=== PATIENT | male | born 1950 | race Caucasian/White ===

== ENCOUNTER → 2022-03-23 09:50 | Outpatient (POV) | payer OTHER, SELFPAY ==
[2022-03-23 10:18] VITALS: BP 98/63; PULSE 95; RESP 20; BMI 28.5
--- NOTE | 2022-03-23 15:33 | EXP.PAIN.OV ---
HPI Data of Consult Patient: new to practice Consult date: 03/23/22 Requesting Physician: Aviva Benz APRN Primary Care Provider: margarita negrete Consult Narrative Reason for consult: Low back pain, left thigh pain/tingling History of present illness: Mr. Bhatia is a 71 year old male who presents today as a new patient. He is a referral from Apryl from an [employer]. Patient states he has been having some low back pain that radiates into his left thigh. He states this is a tingling, dull ache sensation that is worse with prolonged sitting. Patient states this has been going on since around December or January of this year. He stated there is no significant trauma or injury to that site however his primary care provider had recommended more exercise so he switched from his riding lawnmower to a push lawnmower and may have irritated something during that time. Today the patient rates his pain a 1-2 out of 10. He states the pain is more in his left thigh today. Patient states that he does feel like his legs are somewhat weak and will occasionally have some dizziness when standing. Patient also reports some constipation and urinary frequency at today's visit. Patient has not talked to his primary care provider regarding these issues. He states he typically takes [id number] Tylenol or ibuprofen and this does provide moderate relief of his symptoms. He has also been using Biofreeze and Salonpas with some relief of symptoms. Patient has not been to see physical therapy or chiropractor. Patient has had imaging of his lumbar spine. Patient is not managed with any scheduled medications. His Foster is [id number]. It has been reviewed and appropriate. CC: Aviva Benz APRN [facility] Medical History (Updated 03/23/22 @ 15:54 by Aviva Benz APRN) Gout History of gastroesophageal reflux (GERD) Hyperlipidemia Hypertension Kidney stone Normal colonoscopy Osteoarthritis Pilonidal cyst Sleep apnea TIA (transient ischemic attack) Surgical History (Updated 03/23/22 @ 10:28 by Sia Waggoner RN) H/O hernia repair History of tonsillectomy Social History Smoking Status: Smoker, status unknown alcohol intake: never current occupational status: other Review of Systems Review of Systems Review of systems:: pertinent systems reviewed and negative unless documented below Review of systems (narrative): Review of Systems: General: No recent weight changes, no fever, no sleep disturbances Respiratory: No cough, no shortness of air, no recurring pulmonary infections Cardiovascular/peripheral vascular: No chest pain, no palpitations, no edema, no shortness of breath Gastrointestinal: No new onset incontinence, normal bowel movements reported Genitourinary: No new onset incontinence Musculoskeletal: Low back pain, left leg pain Psychiatric: [Normal mood/affect] Neurological: [Denies weakness in extremities], [denies balance issues] Meds Home Medications and Allergies Home Medications Medication Instructions Recorded Confirmed Type allopurinol 300 mg tablet 300 mg PO DAILY gout 03/23/22 03/23/22 History aspirin 325 mg tablet 325 mg PO DAILY heart health 03/23/22 03/23/22 History atorvastatin 20 mg tablet 20 mg PO HS Cholesterol 03/23/22 03/23/22 History lisinopril 20 1 tab PO DAILY blood pressure 03/23/22 03/23/22 History mg-hydrochlorothiazide 12.5 mg tablet omeprazole 20 mg capsule,delayed 20 mg PO DAILY GERD 03/23/22 03/23/22 History release New Prescriptions to Start Prescriptions: Allergies Allergy/AdvReac Type Severity Reaction Status Date / Time No Known Allergies Allergy Verified 03/23/22 10:29 Objective Vital signs: Pulse Resp BP 95 H 20 98/63 L 03/23/22 10:18 03/23/22 10:18 03/23/22 10:18 Narrative: Physical Exam: General: Alert and oriented x3, no acute distress, pleasant and cooperative Lungs: Respirations even and unlabored, symmetrical chest expansion
== END ==
PROVIDERS: Visit Provider Nurse Practitioner Family
DX: M79.18 Myalgia, other site (principal); M79.605 Pain in left leg; M53.9 Dorsopathy, unspecified; M47.816 Spondylosis without myelopathy or radiculopathy, lumbar region
CPT/HCPCS: 99202; G0463

== ENCOUNTER 2022-04-12 08:46 | Day surgery (SDC) | payer MEDICARE, SELFPAY ==
[2022-04-12 09:13] VITALS: BP 131/81; BP 142/86; PULSE 69; PULSE 72; RESP 20; O2SAT 94; BMI 28.5
[2022-04-12 09:18] VITALS: BP 148/85; PULSE 81; RESP 18; O2SAT 98
[2022-04-12 09:21] VITALS: BP 148/85; PULSE 81; RESP 18; O2SAT 98
--- NOTE | 2022-04-12 09:31 | EXP.PAIN.PRO ---
Procedure Date: 04/12/22 Time: 09:32 Anesthesiologist:: Naman Torres CRNA Complications:: None Pre-procedure Diagnosis:: Left piriformis syndrome Post-procedure Diagnosis:: Same Indications for Procedure:: Patient's pleasant 71-year-old male that comes our injection clinic today for left piriformis injection. Patient having pain he describes as constant while standing. However, he rates the pain a 3/10. Procedure Details:: Details of the procedure were explained to the patient. The patient taken the procedure room placed in the prone position. The area over the left posterior hip was cleaned using chlorhexidine as a cleansing solution. At this time using fluoroscopy guidance a 3 and half inch 22-gauge spinal needle was advanced into the left piriformis muscle. Needle position was confirmed using contrast dye. A positive linear spread was noted. After negative aspiration 4 cc of 0.25% Marcaine +40 mg of Depo-Medrol was injected. Needle was removed. Band-Aid was applied. Patient tolerated procedure without difficulty. Plan and Disposition:: Patient was discharged without incident
== END 2022-04-12 09:35 | disposition home or self-care (01) ==
PROVIDERS: PCP Nurse Practitioner Family; Visit Provider Nurse Anesthetist, Certified Registered
DX: G57.02 Lesion of sciatic nerve, left lower limb (principal)
CPT/HCPCS: 20552; 77002; J1030; Q9966

== ENCOUNTER → 2022-04-27 09:36 | Outpatient (POV) | payer MEDICARE, SELFPAY ==
[2022-04-27 10:22] VITALS: BP 151/84; PULSE 79; RESP 18; TEMP 36.4; O2SAT 94; BMI 29.5
--- NOTE | 2022-04-27 12:38 | EXP.PAIN.SOA ---
[facility] Pain Management SOAP Note Subjective:: Patient is a pleasant 71-year-old male that presents today for follow-up from left piriformis injection on 04/12/2022. We are currently treating the patient for degenerative disc disease multilevel lumbar spine with lumbar facet arthropathy, low back pain, lumbar spondylosis, myofascial pain, left leg pain, piriformis syndrome. Patient states that he has had significant improvement following this injection and feels like he is still continuing to get help. He states that he did end up getting a COVID booster Monday and felt really terrible Monday however he has had significant improvement after following . Today he rates his pain a 1 out of 10. He states he has some pain in his low back remaining. Patient states that he has had at least 50% improvement following this injection. He states he has been able to increase his activity such as walking around [place] farm, standing, washing dishes, activities of daily living. Patient continues to do physical therapy and at home exercise and stretching techniques that also provide improvement of his symptoms. Patient does use ibuprofen as needed to help treat his symptoms. He also uses Biofreeze and Salonpas with some relief of his symptoms. Patient is not on any scheduled medications. His Foster is [id number]. It has been reviewed and appropriate. Objective:: Physical Exam: General: Alert and oriented x3, no acute distress, pleasant and cooperative Lungs: Respirations even and unlabored, symmetrical chest expansion Eyes: PERRL Musculoskeletal: Flexion and extension of lumbar [spine] somewhat guarded secondary to pain, [antalgic gait noted] Neurological: Speech clear, no gross sensory deficit Assessment:: degenerative disc disease multilevel lumbar spine with lumbar facet arthropathy, low back pain, lumbar spondylosis, myofascial pain, left leg pain, piriformis syndrome Plan:: Patient has had significant improvement of his symptoms following the piriformis injection injection. At this time he does not need additional injective therapy. Patient will follow-up in 1 month. He will return to clinic in 1 month for reevaluation of symptoms and follow-up. Patient has been instructed to contact the clinic with any concerns before the next appointment. Dr. Shaikh has reviewed this note and agrees with this plan of care. This note was dictated using voice recognition software and make contain errors or omissions. [facility] Medical History Gout History of gastroesophageal reflux (GERD) Hyperlipidemia Hypertension Kidney stone Normal colonoscopy Osteoarthritis Pilonidal cyst Sleep apnea TIA (transient ischemic attack) Surgical History H/O hernia repair History of tonsillectomy Family History (Updated 04/12/22 @ 09:17 by Sia Waggoner RN) Other No significant family history Social History (Updated 04/12/22 @ 09:18 by Sia Waggoner RN) Smoking Status: Smoker, status unknown alcohol intake: never current occupational status: retired Travel in the last 8 weeks: None
== END ==
PROVIDERS: PCP Nurse Practitioner Family; Visit Provider Nurse Practitioner Family
DX: M51.36 Other intervertebral disc degeneration, lumbar region (principal); M47.816 Spondylosis without myelopathy or radiculopathy, lumbar region; M79.18 Myalgia, other site; G57.00 Lesion of sciatic nerve, unspecified lower limb
CPT/HCPCS: 99212; G0463

== ENCOUNTER → 2022-05-26 09:38 | Outpatient (POV) | payer MEDICARE, SELFPAY ==
--- NOTE | 2022-05-26 10:01 | A.OFFVIS_ITS ---
[facility] Pain Management SOAP Note Subjective:: Patient is a pleasant 71-year-old male who presents today for follow-up of left piriformis injection on 04/12/2022. We are currently treating the patient for degenerative disc disease of lumbar spine multilevel with lumbar facet arthropathy, low back pain, lumbar spondylosis, myofascial pain, left leg pain, piriformis syndrome. Today the patient states he has had significant improvement following this injection as well as physical therapy. Patient states he is at least 95% better from when he originally started coming to the office. Patient states he has increased his activity with minimal pain symptoms. Patient does state he still has occasional left thigh numbness. Patient denies any new trauma or injury. He denies any change to location or type of pain he experiences. Patient does use Biofreeze and Salonpas as needed to help with his symptoms as well as ibuprofen. Patient is not on any scheduled medications. His Foster is [id number]. It has been reviewed and appropriate. Review of Systems: General: No recent weight changes, no fever, no sleep disturbances Respiratory: No cough, no shortness of air, no recurring pulmonary infections Cardiovascular/peripheral vascular: No chest pain, no palpitations, no edema, no shortness of breath Gastrointestinal: No new onset incontinence, normal bowel movements reported Genitourinary: No new onset incontinence Musculoskeletal: Low back pain, left leg pain Psychiatric: [Normal mood/affect] Neurological: [Denies weakness in extremities], [denies balance issues] Objective:: Physical Exam: General: Alert and oriented x3, no acute distress, pleasant and cooperative Lungs: Respirations even and unlabored, symmetrical chest expansion Eyes: PERRL Musculoskeletal: Flexion and extension of lumbar [spine] somewhat guarded secondary to pain, [antalgic gait noted] Neurological: Speech clear, no gross sensory deficit Assessment:: Degenerative disc disease of lumbar spine multilevel with lumbar radiculopathy symptoms, lumbar spondylosis, myofascial pain, piriformis syndrome, low back pain, left leg pain Plan:: Patient has had significant improvement following his injection and physical therapy. At this time the patient does not require any additional injections. We will follow-up with the patient in 1 month. Patient will return to clinic in 1 month for reevaluation of symptoms and follow-up. Patient has been instructed to contact the clinic with any concerns before the next appointment. Dr. Shaikh has reviewed this note and agrees with this plan of care. This note was dictated using voice recognition software and make contain errors or omissions. PFSH PFSH Medical History Gout History of gastroesophageal reflux (GERD) Hyperlipidemia Hypertension Kidney stone Normal colonoscopy Osteoarthritis Pilonidal cyst Sleep apnea TIA (transient ischemic attack) Surgical History H/O hernia repair History of tonsillectomy Family History (Updated 04/12/22 @ 09:17 by Sia Waggoner RN) Other No significant family history Social History (Updated 04/12/22 @ 09:18 by Sia Waggoner RN) Smoking Status: Smoker, status unknown alcohol intake: never current occupational status: retired Travel in the last 8 weeks: None
[2022-05-26 10:17] VITALS: BP 106/72; PULSE 77; RESP 18; TEMP 36.7; O2SAT 98; BMI 29.0
== END ==
PROVIDERS: PCP Nurse Practitioner Family; Visit Provider Nurse Practitioner Family
DX: M51.16 Intervertebral disc disorders with radiculopathy, lumbar region (principal); M47.26 Other spondylosis with radiculopathy, lumbar region; G57.00 Lesion of sciatic nerve, unspecified lower limb; M79.18 Myalgia, other site; M79.605 Pain in left leg; Z79.899 Other long term (current) drug therapy
CPT/HCPCS: 99212; G0463

== ENCOUNTER → 2022-06-29 09:59 | Outpatient (POV) | payer MEDICARE, SELFPAY ==
[2022-06-29 10:18] VITALS: BP 122/78; PULSE 80; RESP 18; O2SAT 95; BMI 28.5
--- NOTE | 2022-06-29 10:31 | EXP.PAIN.SOA ---
[facility] Pain Management SOAP Note Subjective:: Patient is a pleasant 71-year-old male who presents today for follow-up. We are currently treating the patient for degenerative disc disease of lumbar spine multilevel with lumbar radiculopathy, lumbar facet arthropathy, low back pain, lumbar spondylosis, myofascial pain, left leg pain, piriformis syndrome. Today he rates his pain a 0 out of 10. Patient states that he is continue to have minimal pain following his last left piriformis injection on 04/12/2022. Patient states he does not even have to use the Biofreeze or Salonpas that he previously used or ibuprofen. Patient is not on any scheduled medications. He did go to physical therapy which provided significant improvement and he continues to do at home exercising and stretching. Patient states he will occasionally get some pains in his upper legs at night and describes this as a achy sensation but he states this frequently is relieved with a warm blanket. At this time he states it does not create significant issues. His Foster is [id number]. It has been reviewed and appropriate. Review of Systems: General: No recent weight changes, no fever, no sleep disturbances Respiratory: No cough, no shortness of air, no recurring pulmonary infections Cardiovascular/peripheral vascular: No chest pain, no palpitations, no edema, no shortness of breath Gastrointestinal: No new onset incontinence, normal bowel movements reported Genitourinary: No new onset incontinence Musculoskeletal: Leg pain Psychiatric: [Normal mood/affect] Neurological: [Denies weakness in extremities], [denies balance issues] Objective:: Physical Exam: General: Alert and oriented x3, no acute distress, pleasant and cooperative Lungs: Respirations even and unlabored, symmetrical chest expansion Eyes: PERRL Musculoskeletal: Flexion and extension of lumbar [spine] somewhat guarded secondary to pain, [antalgic gait noted] Neurological: Speech clear, no gross sensory deficit Assessment:: Degenerative disc disease of lumbar spine multilevels with lumbar radiculopathy symptoms, lumbar facet arthropathy, lumbar spondylosis, low back pain, myofascial pain, left leg pain, piriformis syndrome Plan:: Patient continues to have significant improvement following his last injection. At this time he does not require any additional injective therapy. We will follow-up with the patient in 3 months for reevaluation of symptoms and follow-up. Patient has been instructed to contact the clinic with any concerns before the next appointment. Dr. Shaikh has reviewed this note and agrees with this plan of care. This note was dictated using voice recognition software and make contain errors or omissions. [facility] Medical History Gout History of gastroesophageal reflux (GERD) Hyperlipidemia Hypertension Kidney stone Normal colonoscopy Osteoarthritis Pilonidal cyst Sleep apnea TIA (transient ischemic attack) Surgical History H/O hernia repair History of tonsillectomy Family History (Updated 04/12/22 @ 09:17 by Sia Waggoner RN) Other No significant family history Social History (Updated 04/12/22 @ 09:18 by Sia Waggoner RN) Smoking Status: Smoker, status unknown alcohol intake: never current occupational status: retired Travel in the last 8 weeks: None
== END ==
PROVIDERS: PCP Nurse Practitioner Family; Visit Provider Nurse Practitioner Family
DX: M51.16 Intervertebral disc disorders with radiculopathy, lumbar region (principal); M47.26 Other spondylosis with radiculopathy, lumbar region; M79.10 Myalgia, unspecified site; G57.00 Lesion of sciatic nerve, unspecified lower limb; M79.605 Pain in left leg
CPT/HCPCS: 99212; G0463

== ENCOUNTER → 2022-09-22 10:12 | Outpatient (POV) | payer MEDICARE, SELFPAY ==
--- NOTE | 2022-09-22 10:29 | EXP.PAIN.SOA ---
[facility] Pain Management SOAP Note Subjective:: Patient is a pleasant 71-year-old male who presents today for follow-up. We are currently treating the patient for degenerative disc disease of lumbar spine multilevel with lumbar radiculopathy symptoms, lumbar facet arthropathy, low back pain, lumbar spondylosis, myofascial pain, left leg pain, piriformis syndrome. Today he rates his pain a 0 out of 10. Patient denies any new trauma or injury. Patient denies any change location or type of pain he experiences. Patient did have a left piriformis injection on 04/12/2022 that continues to provide significant relief. Patient has not even needed to use his Biofreeze, or Salonpas. Patient states he does still continue to have occasional knee pain at night however he will use ibuprofen and this is resolved. Patient states he has no walking pain now following his prior injection. Patient states he will occasionally notice some stiffness when he has been driving for longer period of time or sitting however he still states he has had significant improvement. Patient is not on any scheduled medications. Patient did go to physical therapy which provided significant improvement and he continues to do at home stretching and exercising. His Foster is [id number]. Its been reviewed and appropriate. Review of Systems: General: No recent weight changes, no fever, no sleep disturbances Respiratory: No cough, no shortness of air, no recurring pulmonary infections Cardiovascular/peripheral vascular: No chest pain, no palpitations, no edema, no shortness of breath Gastrointestinal: No new onset incontinence, normal bowel movements reported Genitourinary: No new onset incontinence Musculoskeletal: Low back pain Psychiatric: [Normal mood/affect] Neurological: [Denies weakness in extremities], [denies balance issues] Objective:: Physical Exam: General: Alert and oriented x3, no acute distress, pleasant and cooperative Lungs: Respirations even and unlabored, symmetrical chest expansion Eyes: PERRL Musculoskeletal: Flexion and extension of lumbar [spine] somewhat guarded secondary to pain, [antalgic gait noted] Neurological: Speech clear, no gross sensory deficit ORT score updated with low risk Assessment:: Degenerative disc disease of lumbar spine with lumbar radiculopathy symptoms multilevel, lumbar facet arthropathy, lumbar spondylosis, low back pain, myofascial pain, left leg pain, piriformis syndrome Plan:: Patient continues to experience significant relief and does not require any additional injective therapy. Patient will return to clinic in 6 months for reevaluation of symptoms and plan of care. Patient has been instructed to contact the clinic with any concerns before the next appointment. Dr. Shaikh has reviewed this note and agrees with this plan of care. This note was dictated using voice recognition software and make contain errors or omissions. [facility] Disclaimer: The information contained in this section may have been updated after the patient was seen, as this information can be updated by other users. Medical History Gout History of gastroesophageal reflux (GERD) Hyperlipidemia Hypertension Kidney stone Normal colonoscopy Osteoarthritis Pilonidal cyst Sleep apnea TIA (transient ischemic attack) Surgical History H/O hernia repair History of tonsillectomy Family History (Updated 04/12/22 @ 09:17 by Sia Waggoner RN) Other No significant family history Social History (Updated 04/12/22 @ 09:18 by Sia Waggoner RN) Smoking Status: Smoker, status unknown alcohol intake: never current occupational status: retired Travel in the last 8 weeks: None
[2022-09-22 10:38] VITALS: BP 140/73; PULSE 84; RESP 18; O2SAT 98; BMI 28.7
== END ==
PROVIDERS: PCP Nurse Practitioner Family; Visit Provider Nurse Practitioner Family
DX: M51.16 Intervertebral disc disorders with radiculopathy, lumbar region (principal); M47.26 Other spondylosis with radiculopathy, lumbar region; M79.605 Pain in left leg; G57.00 Lesion of sciatic nerve, unspecified lower limb; M79.10 Myalgia, unspecified site
CPT/HCPCS: 99212; G0463

== ENCOUNTER → 2023-03-23 10:07 | Outpatient (POV) | payer MEDICARE, SELFPAY ==
--- NOTE | 2023-03-23 10:16 | EXP.PAIN.SOA ---
[facility] Pain Management SOAP Note Subjective:: Patient is a pleasant 71-year-old male who presents today for 6-month follow-up. We are currently treating the patient for degenerative disc disease of lumbar spine multilevel with lumbar radiculopathy symptoms, lumbar facet arthropathy, low back pain, lumbar spondylosis, myofascial pain, left leg pain, piriformis syndrome. Today he rates his pain a 0 out of 10. He states he continues to have relief from his last injection. He had a left piriformis injection on 04/12/2022 that continues to provide significant relief. He denies any new trauma or injury or any change location or type of pain he experiences. He states he really only has some nighttime pain in his hip and leg however it is minimal and he uses ibuprofen as needed to help with this. Patient does state that he has not even been having to use his Salonpas cream. He continues to feel much more functional since having his injection. Patient is not on any scheduled medications. He continues to also do at home exercising and stretching on a daily basis. His Foster is [id number]. Its been reviewed and appropriate. Review of Systems: General: No recent weight changes, no fever, no sleep disturbances Respiratory: No cough, no shortness of air, no recurring pulmonary infections Cardiovascular/peripheral vascular: No chest pain, no palpitations, no edema, no shortness of breath Gastrointestinal: No new onset incontinence, normal bowel movements reported Genitourinary: No new onset incontinence Musculoskeletal: Low back pain Psychiatric: [Normal mood/affect] Neurological: [Denies weakness in extremities], [denies balance issues] Objective:: Physical Exam: General: Alert and oriented x3, no acute distress, pleasant and cooperative Lungs: Respirations even and unlabored, symmetrical chest expansion Eyes: PERRL Musculoskeletal: Flexion and extension of lumbar [spine] somewhat guarded secondary to pain, [antalgic gait noted] Neurological: Speech clear, no gross sensory deficit Assessment:: Degenerative disc disease of lumbar spine with lumbar radiculopathy symptoms, lumbar facet arthropathy, low back pain, lumbar spondylosis, myofascial pain, left leg pain, piriformis syndrome Plan:: Patient continues to have significant relief following his last piriformis injection and does not require any additional injective therapy at this time. Patient will return to clinic in 6 months for reevaluation of symptoms and plan of care. Patient has been instructed to contact the clinic with any concerns before the next appointment. Dr. Shaikh has reviewed this note and agrees with this plan of care. This note was dictated using voice recognition software and make contain errors or omissions. [facility] Disclaimer: The information contained in this section may have been updated after the patient was seen, as this information can be updated by other users. Medical History Gout History of gastroesophageal reflux (GERD) Hyperlipidemia Hypertension Kidney stone Normal colonoscopy Osteoarthritis Pilonidal cyst Sleep apnea TIA (transient ischemic attack) Surgical History H/O hernia repair History of tonsillectomy Family History (Updated 04/12/22 @ 09:17 by Sia Waggoner RN) Other No significant family history Social History (Updated 04/12/22 @ 09:18 by Sia Waggoner RN) Smoking Status: Smoker, status unknown alcohol intake: never current occupational status: retired Travel in the last 8 weeks: None
[2023-03-23 12:33] VITALS: BP 119/83; PULSE 71; RESP 18; O2SAT 97; BMI 28.8
== END ==
PROVIDERS: PCP Nurse Practitioner Family; Visit Provider Nurse Practitioner Family
DX: M51.16 Intervertebral disc disorders with radiculopathy, lumbar region (principal); M47.26 Other spondylosis with radiculopathy, lumbar region; M79.10 Myalgia, unspecified site; G57.02 Lesion of sciatic nerve, left lower limb; M79.605 Pain in left leg
CPT/HCPCS: 99212; G0463

== ENCOUNTER → 2023-06-14 14:07 | Outpatient (POV) | payer MEDICARE, SELFPAY ==
[2023-06-14 15:02] VITALS: BP 158/91; PULSE 92; RESP 20; O2SAT 94; BMI 28.5
--- NOTE | 2023-06-14 15:07 | EXP.PAIN.SOA ---
[facility] Pain Management SOAP Note Subjective:: Patient is a pleasant 72-year-old male who presents today for follow-up. We are currently treating the patient for degenerative disc disease of lumbar spine with lumbar radiculopathy symptoms, lumbar facet arthropathy, lumbar spondylosis, low back pain, myofascial pain, left leg pain, piriformis syndrome. Today he rates his pain a 3 out of 10. Patient states he has been experiencing more hip and left leg pain. Patient states this is a aching, throbbing sensation that is worse in bilateral hips. Patient denies any new injury or trauma. He does state that he sleeps on his side and frequently changes positions multiple times throughout the night due to worsening pain symptoms. He states that he is having worsening pain in his legs that seems to be somewhat related to his positioning. He does state the pain interferes with his ability perform activities of daily living such as cooking and cleaning. Patient continues to use ibuprofen as needed along with Salonpas. His Foster has been reviewed and is appropriate. Review of Systems: General: No recent weight changes, no fever, no sleep disturbances Respiratory: No cough, no shortness of air, no recurring pulmonary infections Cardiovascular/peripheral vascular: No chest pain, no palpitations, no edema, no shortness of breath Gastrointestinal: No new onset incontinence, normal bowel movements reported Genitourinary: No new onset incontinence Musculoskeletal: Bilateral hip pain, left leg pain Psychiatric: [Normal mood/affect] Neurological: [Denies weakness in extremities], [denies balance issues] Objective:: Physical Exam: General: Alert and oriented x3, no acute distress, pleasant and cooperative Lungs: Respirations even and unlabored, symmetrical chest expansion Eyes: PERRL Musculoskeletal: Flexion and extension of bilateral hips somewhat guarded secondary to pain, [antalgic gait noted] Neurological: Speech clear, no gross sensory deficit Assessment:: Degenerative disc disease of lumbar spine with lumbar radiculopathy symptoms, lumbar facet arthropathy, lumbar spondylosis, low back pain, myofascial pain, left leg pain, piriformis syndrome, bilateral hip pain/osteoarthritis Plan:: Patient is experiencing worsening pain in his bilateral hips with limited range of motion. I have discussed with the patient that he may benefit from bilateral hip intra-articular injections. Risk and benefits were discussed with patient and he would like to proceed forward with this plan of care. Patient will be scheduled for bilateral hip intra-articular injections. Patient has been instructed to contact the clinic with any concerns before the next appointment. Dr. Shaikh has reviewed this note and agrees with this plan of care. This note was dictated using voice recognition software and make contain errors or omissions. [facility] Disclaimer: The information contained in this section may have been updated after the patient was seen, as this information can be updated by other users. Medical History Gout History of gastroesophageal reflux (GERD) Hyperlipidemia Hypertension Kidney stone Normal colonoscopy Osteoarthritis Pilonidal cyst Sleep apnea TIA (transient ischemic attack) Surgical History H/O hernia repair History of tonsillectomy Family History Other No significant family history Social History (Updated 06/14/23 @ 15:02 by Sia Waggoner RN) Smoking Status: Never smoker alcohol intake: never current occupational status: other Travel in the last 8 weeks: None
== END ==
PROVIDERS: PCP Nurse Practitioner Family; Visit Provider Nurse Practitioner Family
DX: M51.16 Intervertebral disc disorders with radiculopathy, lumbar region (principal); M47.26 Other spondylosis with radiculopathy, lumbar region; M79.10 Myalgia, unspecified site; M79.605 Pain in left leg; G57.00 Lesion of sciatic nerve, unspecified lower limb; M16.0 Bilateral primary osteoarthritis of hip; M25.551 Pain in right hip; M25.552 Pain in left hip
CPT/HCPCS: 99202; G0463

== ENCOUNTER 2023-06-27 13:38 | Day surgery (SDC) | payer MEDICARE, SELFPAY ==
[2023-06-27 13:54] VITALS: BP 131/85; PULSE 91; RESP 16; TEMP 36.2; O2SAT 92; BMI 28.5
[2023-06-27 14:00] VITALS: BP 146/89; PULSE 93; RESP 18; O2SAT 97
[2023-06-27 14:02] VITALS: BP 146/89; PULSE 93; RESP 18; O2SAT 97
[2023-06-27 14:11] VITALS: BP 125/84; PULSE 83; RESP 18; O2SAT 92
--- NOTE | 2023-06-27 14:20 | EXP.PAIN.PRO ---
Procedure Date: 06/27/23 Time: 14:10 Anesthesiologist:: Naman Torres CRNA Complications:: None Pre-procedure Diagnosis:: DJD bilateral hip. Chronic left leg and foot pain. Post-procedure Diagnosis:: Same. Indications for Procedure:: Patient is a very pleasant 72-year-old male who comes our clinic today for bilateral intra-articular hip injections. Patient is complaining of bilateral hip pain at night when sleeping. This pain wakes him and causes him to turn [id number] during the night. Patient reports some difficulty with ambulation at times due to bilateral hip pain. However he reports most of his pain is at night. Patient also complaining of left leg and foot radicular symptoms. He reports a 2 to 3-year history of this radicular symptom. I discussed in detail with the patient and his . If no relief from the bilateral intra-articular hip injections with we should pursue lumbar MRI to further discern lumbar pathology. Procedure Details:: Details of the procedure were explained to the patient. The patient was taken to procedure room placed in the supine position. The area over the bilateral hip was cleaned using chlorhexidine as a cleansing solution. Using fluoroscopy guidance a 3 and half inch 22-gauge spinal needle was used to access the bilateral hip joint without difficulty. After negative aspiration 3 cc of 1% lidocaine +3 cc of 0.25% Marcaine and 40 mg of Depo-Medrol was injected. Needle was withdrawn. Band-Aid applied. Patient tolerated procedure without difficulty. There are no complications. Plan and Disposition:: Patient was discharged without incident.
== END 2023-06-27 14:10 | disposition home or self-care (01) ==
LOC: SC.PAINP 13:39
PROVIDERS: PCP Nurse Practitioner Family; Visit Provider Nurse Anesthetist, Certified Registered
DX: M16.0 Bilateral primary osteoarthritis of hip (principal); M79.672 Pain in left foot; M79.605 Pain in left leg; G89.29 Other chronic pain
CPT/HCPCS: 20610; 77002; J1040

== ENCOUNTER → 2023-07-12 15:02 | Outpatient (POV) | payer MEDICARE, SELFPAY ==
--- NOTE | 2023-07-12 15:29 | EXP.PAIN.SOA ---
[facility] Pain Management SOAP Note Subjective:: Patient is a pleasant 72-year-old male who presents today for follow-up of bilateral intra-articular hip injections on 06/27/2023. We do currently treat the patient for degenerative disc disease of lumbar spine with lumbar radiculopathy symptoms, lumbar facet arthropathy, lumbar spondylosis, low back pain, myofascial pain, bilateral hip pain, left leg pain, piriformis syndrome. Today he rates his pain a 0 out of 10. patient states he had at least 75% improvement starting the very next day. Patient does state that he was experiencing some right leg spasms and had some pain still however the last 3 days he has had 100% improvement with no pain. Patient states he has been able to increase his activity with decreased pain symptoms and feels more functional. Patient does use ibuprofen along with Salonpas patches as needed. His Foster has been reviewed and is appropriate. Review of Systems: General: No recent weight changes, no fever, no sleep disturbances Respiratory: No cough, no shortness of air, no recurring pulmonary infections Cardiovascular/peripheral vascular: No chest pain, no palpitations, no edema, no shortness of breath Gastrointestinal: No new onset incontinence, normal bowel movements reported Genitourinary: No new onset incontinence Musculoskeletal: Low back pain Psychiatric: [Normal mood/affect] Neurological: [Denies weakness in extremities], [denies balance issues] Objective:: Physical Exam: General: Alert and oriented x3, no acute distress, pleasant and cooperative Lungs: Respirations even and unlabored, symmetrical chest expansion Eyes: PERRL Musculoskeletal: Flexion and extension of lumbar [spine] somewhat guarded secondary to pain, [antalgic gait noted] Neurological: Speech clear, no gross sensory deficit Assessment:: degenerative disc disease of lumbar spine with lumbar radiculopathy symptoms, lumbar facet arthropathy, lumbar spondylosis, low back pain, myofascial pain, bilateral hip pain, left leg pain, piriformis syndrome Plan:: Patient has had significant improvement following his bilateral hip intra-articular injections and does not require any additional injection therapy at this time. Patient will return to clinic in 1 month for reevaluation of symptoms and plan of care. Patient has been instructed to contact the clinic with any concerns before the next appointment. Dr. Shaikh has reviewed this note and agrees with this plan of care. This note was dictated using voice recognition software and make contain errors or omissions. [facility] Disclaimer: The information contained in this section may have been updated after the patient was seen, as this information can be updated by other users. Medical History Gout History of gastroesophageal reflux (GERD) Hyperlipidemia Hypertension Kidney stone Normal colonoscopy Osteoarthritis Pilonidal cyst Sleep apnea TIA (transient ischemic attack) Surgical History H/O hernia repair History of tonsillectomy Family History Other No significant family history Social History Smoking Status: Never smoker alcohol intake: never current occupational status: other Travel in the last 8 weeks: None
[2023-07-12 15:31] VITALS: BP 117/75; PULSE 92; RESP 18; O2SAT 93; BMI 28.8
== END ==
PROVIDERS: PCP Nurse Practitioner Family; Visit Provider Nurse Practitioner Family
DX: M51.16 Intervertebral disc disorders with radiculopathy, lumbar region (principal); M47.26 Other spondylosis with radiculopathy, lumbar region; M79.10 Myalgia, unspecified site; M25.551 Pain in right hip; M25.552 Pain in left hip; M79.605 Pain in left leg; G57.00 Lesion of sciatic nerve, unspecified lower limb
CPT/HCPCS: 99212; G0463

== ENCOUNTER → 2023-08-10 10:35 | Outpatient (POV) | payer MEDICARE, SELFPAY ==
--- NOTE | 2023-08-10 10:53 | A.OFFVIS_ITS ---
[facility] Pain Management SOAP Note Subjective:: Patient is a pleasant 72-year-old male who presents today for 1 month follow-up. We do currently treat the patient for degenerative disc disease of lumbar spine with lumbar radiculopathy symptoms, lumbar facet arthropathy, lumbar spondylosis, low back pain, myofascial pain, bilateral hip pain, left leg pain, piriformis syndrome. Today he rates his pain a 0 out of 10. Patient denies any new trauma or injury. Patient previously had Of bilateral intra-articular hip injections on 06/27/2023 that did provide at least 75% improvement. He states he continues to have significant relief however will occasionally experience some pain at night but it is tolerable. He states he does believe a good portion of it is related to arthritis and the change of the weather. He continues to use ibuprofen along with Salonpas patches as needed. His Foster has been reviewed and is appropriate. Review of Systems: General: No recent weight changes, no fever, no sleep disturbances Respiratory: No cough, no shortness of air, no recurring pulmonary infections Cardiovascular/peripheral vascular: No chest pain, no palpitations, no edema, no shortness of breath Gastrointestinal: No new onset incontinence, normal bowel movements reported Genitourinary: No new onset incontinence Musculoskeletal: Low back pain Psychiatric: [Normal mood/affect] Neurological: [Denies weakness in extremities], [denies balance issues] Objective:: Physical Exam: General: Alert and oriented x3, no acute distress, pleasant and cooperative Lungs: Respirations even and unlabored, symmetrical chest expansion Eyes: PERRL Musculoskeletal: Flexion and extension of lumbar [spine] somewhat guarded secondary to pain, [antalgic gait noted] Neurological: Speech clear, no gross sensory deficit Assessment:: Degenerative disc disease of lumbar spine with lumbar radiculopathy symptoms, lumbar facet arthropathy, lumbar spondylosis, low back pain, myofascial pain, bilateral hip pain, leg pain, piriformis syndrome Plan:: Patient continues to does not require any additional injection therapy at this time. Patient will return to clinic in 3 months for reevaluation of symptoms a nd plan of care. Patient has been instructed to contact the clinic with any concerns before the next appointment. Dr. Shaikh has reviewed this note and agrees with this plan of care. This note was dictated using voice recognition software and make contain errors or omissions. [facility] Disclaimer: The information contained in this section may have been updated after the patient was seen, as this information can be updated by other users. Medical History Gout History of gastroesophageal reflux (GERD) Hyperlipidemia Hypertension Kidney stone Normal colonoscopy Osteoarthritis Pilonidal cyst Sleep apnea TIA (transient ischemic attack) Surgical History H/O hernia repair History of tonsillectomy Family History Other No significant family history Social History Smoking Status: Never smoker alcohol intake: never current occupational status: retired Travel in the last 8 weeks: None
[2023-08-10 11:21] VITALS: BP 153/87; PULSE 94; RESP 18; O2SAT 92; BMI 28.5
== END ==
PROVIDERS: PCP Nurse Practitioner Family; Visit Provider Nurse Practitioner Family
DX: M51.16 Intervertebral disc disorders with radiculopathy, lumbar region (principal); M47.26 Other spondylosis with radiculopathy, lumbar region; M79.10 Myalgia, unspecified site; M25.551 Pain in right hip; M25.552 Pain in left hip; M79.606 Pain in leg, unspecified; G57.00 Lesion of sciatic nerve, unspecified lower limb
CPT/HCPCS: 99212; G0463

== ENCOUNTER 2023-11-09 10:20 | Outpatient (POV) | payer MEDICARE, SELFPAY ==
[2023-11-09 10:22] VITALS: BP 155/90; PULSE 75; RESP 18; O2SAT 95; BMI 28.5
--- NOTE | 2023-11-09 10:51 | EXP.PAIN.SOA ---
[facility] Pain Management SOAP Note Subjective:: Patient is a pleasant 73-year-old male who presents today for follow-up. Today he rates his pain a 0 out of 10. He denies any new trauma or injury. He does state that he has started mowing and that he is experiencing more hip pain at night when he lays down as well as overall stiffness and times when he has to drive to [place] for [place]. Patient has had bilateral hip intra-articular injections back in May that did provide 75% relief and have continued to help. His Foster has been reviewed and is appropriate. Review of Systems: General: No recent weight changes, no fever, no sleep disturbances Respiratory: No cough, no shortness of air, no recurring pulmonary infections Cardiovascular/peripheral vascular: No chest pain, no palpitations, no edema, no shortness of breath Gastrointestinal: No new onset incontinence, normal bowel movements reported Genitourinary: No new onset incontinence Musculoskeletal: Hip pain Psychiatric: [Normal mood/affect] Neurological: [Denies weakness in extremities], [denies balance issues] Objective:: Physical Exam: General: Alert and oriented x3, no acute distress, pleasant and cooperative Lungs: Respirations even and unlabored, symmetrical chest expansion Eyes: PERRL Musculoskeletal: Flexion and extension of bilateral hips somewhat guarded secondary to pain, [antalgic gait noted] Neurological: Speech clear, no gross sensory deficit Assessment:: Degenerative disc disease of lumbar spine with lumbar radiculopathy symptoms, lumbar facet arthropathy, lumbar spondylosis, low back pain, myofascial pain, bilateral hip pain, left leg pain, piriformis syndrome Plan:: I discussed with the patient that I will order him a compounded cream. I have recommended that he apply this at night to his hips to see if that helps with the overall pain. I have also discussed with the patient on times when he does have to go to [place] or [place] I would recommend that he take an ibuprofen about an hour before he leaves to see if this helps with the overall stiffness. Patient acknowledges understanding and agrees with this plan of care. I have also discussed with patient in future that we can always do repeat injections when he starts having more consistent pain. We will follow-up with the patient in 1 month for reevaluation of symptoms and plan of care. Patient has been instructed to contact the clinic with any concerns before the next appointment. Dr. Shaikh has reviewed this note and agrees with this plan of care. This note was dictated using voice recognition software and make contain errors or omissions. [facility] Disclaimer: The information contained in this section may have been updated after the patient was seen, as this information can be updated by other users. Medical History Pilonidal cyst Kidney stone Normal colonoscopy Osteoarthritis Sleep apnea TIA (transient ischemic attack) Gout History of gastroesophageal reflux (GERD) Hyperlipidemia Hypertension Surgical History H/O hernia repair History of tonsillectomy Family History Other No significant family history Social History Smoking Status: Never smoker alcohol intake: never current occupational status: other Travel in the last 8 weeks: None
== END 2023-11-09 23:59 ==
LOC: SC.PAIN 10:21
PROVIDERS: PCP Nurse Practitioner Family; Visit Provider Nurse Practitioner Family
DX: M51.16 Intervertebral disc disorders with radiculopathy, lumbar region (principal); M47.26 Other spondylosis with radiculopathy, lumbar region; M79.10 Myalgia, unspecified site; M25.551 Pain in right hip; M25.552 Pain in left hip; M79.605 Pain in left leg; G57.00 Lesion of sciatic nerve, unspecified lower limb
CPT/HCPCS: 99212; G0463

== ENCOUNTER 2023-12-21 10:31 | Outpatient (POV) | payer MEDICARE, SELFPAY ==
[2023-12-21 10:52] VITALS: BP 123/80; PULSE 76; RESP 18; O2SAT 93; BMI 28.7
--- NOTE | 2023-12-21 11:16 | EXP.PAIN.SOA ---
[facility] Pain Management SOAP Note Subjective:: Patient is a pleasant 73-year-old male who presents today for 1 month follow-up. Today he rates his pain a 0 out of 10. Patient does state that he did get the compounded cream and it is helping additionally. He states that the pain went away and that he even picked up a different type of cream that he only uses from time to time and it seems to be helping as well. Patient states that overall following his hip injections in May he has continued to maintain and have improvement. He does state that he is starting yoga soon and hopes this will help as well. His Foster has been reviewed and is appropriate. \Review of Systems: General: No recent weight changes, no fever, no sleep disturbances Respiratory: No cough, no shortness of air, no recurring pulmonary infections Cardiovascular/peripheral vascular: No chest pain, no palpitations, no edema, no shortness of breath Gastrointestinal: No new onset incontinence, normal bowel movements reported Genitourinary: No new onset incontinence Musculoskeletal: Low back pain Psychiatric: [Normal mood/affect] Neurological: [Denies weakness in extremities], [denies balance issues] Objective:: Physical Exam: General: Alert and oriented x3, no acute distress, pleasant and cooperative Lungs: Respirations even and unlabored, symmetrical chest expansion Eyes: PERRL Musculoskeletal: Flexion and extension of lumbar [spine] somewhat guarded secondary to pain, [antalgic gait noted] Neurological: Speech clear, no gross sensory deficit Assessment:: Degenerative disc disease of lumbar spine with lumbar radiculopathy symptoms, lumbar facet arthropathy, lumbar spondylosis, low back pain, myofascial pain, bilateral hip pain, left leg pain Plan:: Patient continues to do well and does not need any additional injections or other interventions. Patient will return to clinic in 3 months for reevaluation of symptoms and plan of care. Patient has been instructed to contact the clinic with any concerns before the next appointment. Dr. Shaikh has reviewed this note and agrees with this plan of care. This note was dictated using voice recognition software and make contain errors or omissions. [facility] Disclaimer: The information contained in this section may have been updated after the patient was seen, as this information can be updated by other users. Medical History Pilonidal cyst Kidney stone Normal colonoscopy Osteoarthritis Sleep apnea TIA (transient ischemic attack) Gout History of gastroesophageal reflux (GERD) Hyperlipidemia Hypertension Surgical History H/O hernia repair History of tonsillectomy Family History Other No significant family history Social History Smoking Status: Never smoker alcohol intake: never current occupational status: retired Travel in the last 8 weeks: None
== END 2023-12-21 23:59 | disposition home or self-care (01) ==
LOC: SC.PAIN 10:32
PROVIDERS: PCP Nurse Practitioner Family; Visit Provider Nurse Practitioner Family
DX: M51.16 Intervertebral disc disorders with radiculopathy, lumbar region (principal); M47.26 Other spondylosis with radiculopathy, lumbar region; M79.10 Myalgia, unspecified site; M25.551 Pain in right hip; M25.552 Pain in left hip; M79.605 Pain in left leg
CPT/HCPCS: 99212; G0463

== ENCOUNTER 2024-03-21 13:59 | Outpatient (POV) | payer MEDICARE, SELFPAY ==
[2024-03-21 14:40] VITALS: BP 138/82; PULSE 89; RESP 16; O2SAT 96; BMI 29.2
--- NOTE | 2024-03-21 14:57 | A.OFFVIS_ITS ---
[facility] Disclaimer: The information contained in this section may have been updated after the patient was seen, as this information can be updated by other users. Medical History Pilonidal cyst Kidney stone Normal colonoscopy Osteoarthritis Sleep apnea TIA (transient ischemic attack) Gout History of gastroesophageal reflux (GERD) Hyperlipidemia Hypertension Surgical History H/O hernia repair History of tonsillectomy Family History Other No significant family history Social History (Reviewed 11/09/23 @ 10: by Renea Sharp RN) Smoking Status: Never smoker alcohol intake: never current occupational status: retired Travel in the last 8 weeks: None PM Subjective & Objective Subjective Subjective:: Patient is a pleasant 73-year-old male who presents today for 3-month follow-up. Today he rates his pain a 0 out of 10. He does state that he has been doing yoga daily and also doing 10,000 steps daily. He does state that overall he is doing really well and that he will occasionally have a pain but it is still very manageable. Patient is requesting a refills on his compounded cream. His Foster has been reviewed and is appropriate. Review of Systems: General: No recent weight changes, no fever, no sleep disturbances Respiratory: No cough, no shortness of air, no recurring pulmonary infections Cardiovascular/peripheral vascular: No chest pain, no palpitations, no edema, no shortness of breath Gastrointestinal: No new onset incontinence, normal bowel movements reported Genitourinary: No new onset incontinence Musculoskeletal: Low back pain Psychiatric: [Normal mood/affect] Neurological: [Denies weakness in extremities], [denies balance issues] Pain at rest (0-10 scale): 0 Objective Objective:: Physical Exam: General: Alert and oriented x3, no acute distress, pleasant and cooperative Lungs: Respirations even and unlabored, symmetrical chest expansion Eyes: PERRL Musculoskeletal: Flexion and extension of lumbar [spine] somewhat guarded secondary to pain, [antalgic gait noted] Neurological: Speech clear, no gross sensory deficit Has patient had previous pain injection?: No Conservative treatment options previously tried: Home exercise plan Length of treatment: Longer than 6 weeks Meds Home Medications and Allergies Home Medications ?Medication ?Instructions ?Recorded ?Confirmed ?Type allopurinol 300 mg tablet 300 mg PO DAILY gout 03/23/22 03/21/24 History aspirin 325 mg tablet 325 mg PO DAILY heart health 03/23/22 03/21/24 History atorvastatin 20 mg tablet 20 mg PO HS Cholesterol 03/23/22 03/21/24 History lisinopril 20 1 tab PO DAILY blood pressure 03/23/22 03/21/24 History mg-hydrochlorothiazide 12.5 mg tablet omeprazole 20 mg capsule,delayed 20 mg PO DAILY GERD 03/23/22 03/21/24 History release New Prescriptions to Start Prescriptions: Allergies Allergy/AdvReac Type Severity Reaction Status Date / Time No Known Allergies Allergy Verified 03/23/22 10:29 Assessment and Plan *Assessment and plan (1) Multilevel degenerative disc disease: Status: Acute Category: Medical Code(s): M53.9 - Dorsopathy, unspecified (2) Lumbar facet arthropathy: Status: Acute Category: Medical Code(s): M47.816 - Spondylosis without myelopathy or radiculopathy, lumbar region Plan Patient continues to do well with no need for any additional injection therapy at this time. I will refill the patient's compounded cream. Patient will return to clinic in 6 months for reevaluation of symptoms and plan of care. Patient has been instructed to contact the clinic with any concerns before the next appointment. Dr. Shaikh has reviewed this note and agrees with this plan of care. This note was dictated using voice recognition software and make contain errors or omissions. All injections are used with Lidocaine or Bupivacaine and Depo Medrol.
== END 2024-03-21 23:59 | disposition home or self-care (01) ==
PROVIDERS: PCP Nurse Practitioner Family; Visit Provider Nurse Practitioner Family
DX: M53.9 Dorsopathy, unspecified (principal); M47.816 Spondylosis without myelopathy or radiculopathy, lumbar region; Z86.73 Personal history of transient ischemic attack (TIA), and cerebral infarction without residual deficits
CPT/HCPCS: 99212; G0463

== ENCOUNTER 2024-09-19 13:17 | Outpatient (POV) | payer MEDICARE, SELFPAY ==
--- NOTE | 2024-09-19 13:29 | A.OFFVIS_ITS ---
[facility] Disclaimer: The information contained in this section may have been updated after the patient was seen, as this information can be updated by other users. Medical History Pilonidal cyst Kidney stone Normal colonoscopy Osteoarthritis Sleep apnea TIA (transient ischemic attack) Gout History of gastroesophageal reflux (GERD) Hyperlipidemia Hypertension Surgical History H/O hernia repair History of tonsillectomy Family History Other No significant family history Social History (Reviewed 11/09/23 @ 10: by Reena Sharp RN) Smoking Status: Never smoker alcohol intake: never current occupational status: retired Travel in the last 8 weeks: None Have you lived/traveled outside [place] in past 30 days?: No Contact w/someone who lives/traveled outside [place] past 30 days?: No Exposure to someone with infectious disease in past 14 days?: No Do you have a fever (greater than 100.4 F or 38 C)?: No Have you tested positive for COVID-19: No Exposed to someone with COVID-19 in past 14 days?: No Do you have a sore throat?: No Do you have a cough?: No Do you have any weakness?: No Do you have any diarrhea?: No Are you experiencing any unusual bleeding?: No Do you have any muscle aches/pain?: No Do you have any abdominal pain?: No Are you experiencing loss of taste or smell?: No PM Subjective & Objective Subjective Subjective:: Patient is a pleasant 73-year-old male who presents today for 6-month follow-up. Today he rates his pain a 0 out of 10. He denies any new trauma or injury. He states that he is still been doing really well and not had any flareups necessarily of his pain. He states at 1 point he was still using ibuprofen occasionally however he has not even had to do that. He does state that he has been taking care of his who did end up having rotator cuff surgery. He states overall she has been doing well. Patient does state that he is still being very active and doing his yoga which has made all the difference. He is prescribed compounded cream from our office. He denies any side effects. His Foster has been reviewed and is appropriate. Review of Systems: General: No recent weight changes, no fever, no sleep disturbances Respiratory: No cough, no shortness of air, no recurring pulmonary infections Cardiovascular/peripheral vascular: No chest pain, no palpitations, no edema, no shortness of breath Gastrointestinal: No new onset incontinence, normal bowel movements reported Genitourinary: No new onset incontinence Musculoskeletal: Low back pain Psychiatric: [Normal mood/affect] Neurological: [Denies weakness in extremities], [denies balance issues] Pain at rest (0-10 scale): 0 Objective Objective:: Physical Exam: General: Alert and oriented x3, no acute distress, pleasant and cooperative Lungs: Respirations even and unlabored, symmetrical chest expansion Eyes: PERRL Musculoskeletal: Flexion and extension of lumbar [spine] within normal limits Neurological: Speech clear, no gross sensory deficit Has patient had previous pain injection?: No Conservative treatment options previously tried: Home exercise plan Length of treatment: Longer than 12 weeks Meds Home Medications and Allergies Home Medications ?Medication ?Instructions ?Recorded ?Confirmed ?Type allopurinol 300 mg tablet 300 mg PO DAILY gout 03/23/22 09/19/24 History aspirin 325 mg tablet 325 mg PO DAILY heart health 03/23/22 09/19/24 History atorvastatin 20 mg tablet 20 mg PO HS Cholesterol 03/23/22 09/19/24 History lisinopril 20 1 tab PO DAILY blood pressure 03/23/22 09/19/24 History mg-hydrochlorothiazide 12.5 mg tablet omeprazole 20 mg capsule,delayed 20 mg PO DAILY GERD 03/23/22 09/19/24 History release New Prescriptions to Start Prescriptions: Allergies Allergy/AdvReac Type Severity Reaction Status Date / Time No Known Allergies Allergy Verified 03/23/22 10:29 Assessment and Plan *Assessment and plan (1) Multilevel degenerative disc disease: Status: Acute Category: Medical Code(s): M53.9 - Dorsopathy, unspecified (2) Lumbar facet arthropathy: Status: Acute Category: Medical Code(s): M47.816 - Spondylosis without myelopathy or radiculopathy, lumbar region (3) Low back pain: Status: Acute Category: Medical Code(s): M54.50 - Low back pain, unspecified Plan Mr. Bhatia continues to do wonderful and does not require any additional injection therapy or interventions at this time. We will have him follow-up back with our office in 6 months. He agrees with this plan of care. Patient has been instructed to contact the clinic with any concerns before the next appointment. Dr. Shaikh has reviewed this note and agrees with this plan of care. This note was dictated using voice recognition software and make contain errors or omissions. All injections are used with Lidocaine, Bupivacaine and Depo Medrol. Occasionally urine drug screen is needed to verify patient's compliance with our office pain contract. This is ordered based off specific treatments related to chronic pain with the potential to abuse certain medications.
[2024-09-19 13:34] VITALS: BP 133/85; PULSE 97; RESP 16; O2SAT 92; BMI 28.5
== END 2024-09-19 23:59 | disposition home or self-care (01) ==
PROVIDERS: PCP Nurse Practitioner Family; Visit Provider Nurse Practitioner Family
DX: M53.9 Dorsopathy, unspecified (principal); M47.816 Spondylosis without myelopathy or radiculopathy, lumbar region; M54.50 Low back pain, unspecified
CPT/HCPCS: 99212; G0463

== ENCOUNTER 2025-03-13 13:45 | Outpatient (POV) | payer MEDICARE, SELFPAY ==
--- NOTE | 2025-03-13 14:03 | EXP.PAIN.SOA ---
[facility] Disclaimer: The information contained in this section may have been updated after the patient was seen, as this information can be updated by other users. Medical History Pilonidal cyst Kidney stone Normal colonoscopy Osteoarthritis Sleep apnea TIA (transient ischemic attack) Gout History of gastroesophageal reflux (GERD) Hyperlipidemia Hypertension Surgical History H/O hernia repair History of tonsillectomy Family History Other No significant family history Social History Smoking Status: Never smoker alcohol intake: never current occupational status: other Travel in the last 8 weeks?: None PM Subjective & Objective Subjective Subjective:: Patient is a pleasant 74-year-old male who presents today for 6-month follow-up. He rates his pain today a 0 out of 10. He denies any new falls or injuries. He does state that overall he has no pain. He does state however in January he did have about 5 days where he ended up having to take ibuprofen at night to sleep. He does state that that is ease down and not having any more issues related to it. He is still staying very active and doing yoga on a daily basis but does notice that he has a crunching sensation in his right knee. He states there is absolutely no pain is just more the annoyance of the sensation and the noise that it causes. He is prescribed compounded cream from our office. His Foster has been reviewed and is appropriate. Review of Systems: General: No recent weight changes, no fever, no sleep disturbances Respiratory: No cough, no shortness of air, no recurring pulmonary infections Cardiovascular/peripheral vascular: No chest pain, no palpitations, no edema, no shortness of breath Gastrointestinal: No new onset incontinence, normal bowel movements reported Genitourinary: No new onset incontinence Musculoskeletal: Low back pain Psychiatric: [Normal mood/affect] Neurological: [Denies weakness in extremities], [denies balance issues] Pain at rest (0-10 scale): 0 Objective Objective:: Physical Exam: General: Alert and oriented x3, no acute distress, pleasant and cooperative Lungs: Respirations even and unlabored, symmetrical chest expansion Eyes: PERRL Musculoskeletal: Flexion and extension of lumbar [spine] within normal limits Neurological: Speech clear, no gross sensory deficit Has patient had previous pain injection?: No Conservative treatment options previously tried: Home exercise plan Length of treatment: Longer than 12 weeks Meds Home Medications and Allergies Home Medications ?Medication ?Instructions ?Recorded ?Confirmed ?Type allopurinol 300 mg tablet 300 mg PO DAILY gout 03/23/22 09/19/24 History aspirin 325 mg tablet 325 mg PO DAILY heart health 03/23/22 09/19/24 History atorvastatin 20 mg tablet 20 mg PO HS Cholesterol 03/23/22 09/19/24 History lisinopril 20 1 tab PO DAILY blood pressure 03/23/22 09/19/24 History mg-hydrochlorothiazide 12.5 mg tablet omeprazole 20 mg capsule,delayed 20 mg PO DAILY GERD 03/23/22 09/19/24 History release New Prescriptions to Start Prescriptions: Allergies Allergy/AdvReac Type Severity Reaction Status Date / Time No Known Allergies Allergy Verified 03/23/22 10:29 Assessment and Plan *Assessment and plan (1) Low back pain: Status: Acute Category: Medical Code(s): M54.50 - Low back pain, unspecified Plan I did discuss with the patient regarding the right knee sensations he has been feeling and it may be more arthritis/[id number] cartilage loss due to normal signs of aging. Patient denies any issues with stability or pain. I have discussed with him that in future if this does start to become an issue then we can look into additional options for this. We will print out some physician guided knee exercises today and follow-up with him in 6 months. Patient has been instructed to contact the clinic with any concerns before the next appointment. Dr. Shaikh has reviewed this note and agrees with this plan of care. This note was dictated using voice recognition software and make contain errors or omissions. All injections are used with Lidocaine, Bupivacaine and dexamethasone. Occasionally urine drug screen is needed to verify patient's compliance with our office pain contract. This is ordered based off specific treatments related to chronic pain with the potential to abuse certain medications.
[2025-03-13 14:26] VITALS: BP 138/90; PULSE 85; RESP 14; O2SAT 98; BMI 27.9
== END 2025-03-13 23:59 | disposition home or self-care (01) ==
PROVIDERS: PCP Nurse Practitioner Family; Visit Provider Nurse Practitioner Family
DX: M54.50 Low back pain, unspecified (principal)
CPT/HCPCS: 99212; G0463